=== PATIENT | male | born 1985 | race Caucasian/White ===

== ENCOUNTER 2016-08-02 19:20 | Emergency (ER) | payer MEDICAID ==
[2016-08-02 19:25] VITALS: BP 111/48; PULSE 88; RESP 16; TEMP 97.7; O2SAT 95
[2016-08-02] MEDS ORDERED: TDAP ADULT 0.5 ML INJ (BOOSTRIX) IM ONE (19:33)
--- NOTE | 2016-08-02 19:53 | EDPHY ---
H & P Time Seen by Provider: 08/02/16 19:45 HPI/ROS: This is a 31-year-old male presenting to emergency department complaining of laceration. to left cheek patient states he was snowboarding today around 1500 , his friend was in front of him and fell patient, causing pt to fall hitting left cheek on corner of snowboard. No LOC, Patient stated he continued snowboard for the rest of the afternoon. Denies any other complaints. Needs tetanus REVIEW OF SYSTEMS: Constitutional: Eyes: ENT: Respiratory: Cardiac: Gastrointestinal: Genitourinary: Musculoskeletal: Skin: Neurological: Psych: Smoking Status: Former smoker Physical Exam: CONSTITUTIONAL: patient appeared well nourished, non-ill appearing and normally developed. No acute distress. Vital signs as documented. HEENT: Normocephalic PERRLA. EOMI. NECK: Supple, without jugular venous distension, tracheal deviation. FROM without pain RESP: Non-labored resp effort NEURO: AAOx3 CNII-XII intact EXTREMITIES: FROM without pain or difficulty SKIN: Warm and dry. 3 cm laceration noted to corner of the left eye and left cheek. Bleeding controlled PSYCH: Normal affect, calm, no distress, acting appropriate Constitutional: Initial Vital Signs Temperature (C) 36.5 C 08/02/16 19:24 Heart Rate 88 08/02/16 19:24 Respiratory Rate 16 08/02/16 19:24 Blood Pressure 111/48 L 08/02/16 19:24 O2 Sat (%) 95 08/02/16 19:24 O2 Delivery Mode Room Air Allergies/Adverse Reactions: No Known Allergies Allergy (Verified 08/02/16 19:26) Home Medications: Medication Instructions Recorded NK [No Known Home Meds] 08/02/16 Medical Decision Making Procedures: Procedure: Laceration repair. Verbal consent was obtained from the patient. 3 cm laceration on the left upper aspect of cheek. 3ml 0.5% bupivacaine with epinephrine local infiltrate. The wound was irrigated. There were no deep structures involved. The wound was repaired using 5-0 Ethilon #5 sutures with Steri-Strips placed. The procedure was performed by myself. A dressing was applied by our EMT. Patient tolerated procedure ED Course/Re-evaluation: Discussed plan of care: 0.5% bupivacaine with epi 3ml local infiltrate, wound irrigation, and plan for sutures. Patient agreed with plan Differential Diagnosis: Differential diagnosis considered but limited to zygoma fracture, foreign body and and hematoma - Data Points Medications Given: Discontinued Medications Diphtheria/Tetanus/Acell Pertussis (Boostrix) 0.5 ml IM .ONCE ONE Stop: 08/02/16 19:34 Last Admin: 08/02/16 19:38 Dose: 0.5 ml Departure - Departure Disposition: Home, Routine, Self-Care Clinical Impression: Laceration Instructions: Care For Your Stitches (ED), Laceration (ED) Additional Instructions: 1. Leave Steri-Strips on the laceration itself, sutures were placed 2. Have sutures removed in 5 days you can return here or go to your primary care doctor's office 3. Ice pack to area 15 minutes every hour for the next 6-12 hours to help decrease in swelling 4. Ibuprofen 600 mg every 6-8 hours as needed, and/or Tylenol 500 mg to 1000 mg every 6 hours 5. Monitor for any signs of infection such as: Redness, red streaking, any pus or fever if this should occur return to the emergency department Referrals: EDDA MCDANIEL [Other] - As per Instructions
== END 2016-08-02 20:23 | disposition home or self-care (01) ==
PROC: 0HQ1XZZ Repair Face Skin, External Approach (ICD-10-PCS; principal; 2016-08-02)
DX: S01.412A Laceration without foreign body of left cheek and temporomandibular area, initial encounter (principal); Z23 Encounter for immunization; Z87.891 Personal history of nicotine dependence; V00.311A Fall from snowboard, initial encounter; Y93.23 Activity, snow (alpine) (downhill) skiing, snowboarding, sledding, tobogganing and snow tubing

== ENCOUNTER 2017-05-15 22:06 | Emergency (ER) | payer MEDICAID ==
[2017-05-15] MEDS ORDERED: LORazepam 2 MG/ML INJ ONE (22:14)
--- NOTE | 2017-05-15 22:19 | EDPHY ---
H & P Time Seen by Provider: 05/15/17 22:10 HPI/ROS: Chief Complaint: Agitation HPI: 31-year-old male who per remain with taking LSD and marijuana earlier tonight. Patient became extremely paranoid and agitated. EMS was called. On arrival the patient was tachycardic. He is quite agitated, requiring 4 point restraints. He is awake alert. He is answering questions. Denies any trauma. No evidence of trauma per EMS. No evidence of other ingestions. Patient has remained does confirm his ingestions. Patient is concerned that his girlfriend might be having a heart attack. ROS: 10 point Review of Systems is negative except as noted in the HPI. PMH: Denies Social History: No smoking, occasional alcohol, marijuana and LSD Family History: non-contributory Physical Exam: Gen: Awake, Alert, responding to internal stimuli, agitated HEENT: Nose: no rhinorrhea Eyes: PERRLA, EOMI Mouth: Moist mucosa Neck: Supple, no JVD Chest: nontender, lungs clear to auscultation Heart: S1, S2 normal, no murmur, tachycardic Abd: Soft, non-tender, no guarding Back: no CVA tenderness, no midline tenderness Ext: no edema, non-tender Skin: no rash Neuro: CN II-XII intact, Sensation grossly intact, Strength 5/5 in bilateral upper and lower extremities - Medical/Surgical History Hx Asthma: No Hx Chronic Respiratory Disease: No Hx Diabetes: No Hx Cardiac Disease: No Hx Renal Disease: No Hx Cirrhosis: No Hx Alcoholism: No Hx HIV/AIDS: No Hx Splenectomy or Spleen Trauma: No Other PMH: Appy, left knee surgery, wisdom teeth extracted - Social History Smoking Status: Former smoker Constitutional: Initial Vital Signs Temperature (C) 36.5 C 05/15/17 22:20 Heart Rate 128 H 05/15/17 22:20 Respiratory Rate 22 H 05/15/17 22:20 Blood Pressure 128/92 H 05/15/17 22:20 O2 Sat (%) 96 05/15/17 22:20 O2 Delivery Mode Room Air Allergies/Adverse Reactions: No Known Allergies Allergy (Verified 08/02/16 19:26) Home Medications: Medication Instructions Recorded NK [No Known Home Meds] 08/02/16 Medical Decision Making ED Course/Re-evaluation: Patient is now awake and appropriate. Ambulating unassisted to the bathroom. No current complaints. Medically cleared for discharge - Data Points Medications Given: Discontinued Medications Haloperidol Lactate (Haldol Injection) 5 mg IVP EDNOW ONE Stop: 05/15/17 23:11 Last Admin: 05/15/17 23:13 Dose: 5 mg Sodium Chloride (Ns) 1,000 mls @ 0 mls/hr IV ONCE ONE; Wide Open PRN Reason: Protocol Stop: 05/15/17 22:25 Last Admin: 05/15/17 22:25 Dose: 1,000 mls Lorazepam (Ativan Injection) 2 mg IVP EDNOW ONE Stop: 05/15/17 22:24 Last Admin: 05/15/17 22:25 Dose: 2 mg Departure - Departure Disposition: Home, Routine, Self-Care Clinical Impression: Polysubstance abuse Condition: Good Instructions: Polysubstance Abuse (ED) Referrals: Patient,NotPresent [Unknown] - As per Instructions
[2017-05-15 22:23] VITALS: TEMP 97.7
[2017-05-15] MEDS ORDERED: LORazepam 2 MG/ML INJ IVP ONE (22:23)
[2017-05-15] MEDS ORDERED: NS 1,000 ML IV ONE (22:24)
[2017-05-15] MEDS ORDERED: HALOPERIDOL LACT 5 MG/ML INJ ONE (23:09)
[2017-05-15] MEDS ORDERED: HALOPERIDOL LACT 5 MG/ML INJ IVP ONE (23:10)
[2017-05-16 06:06] VITALS: BP 122/79; PULSE 69; RESP 16; O2SAT 95
== END 2017-05-16 06:13 | disposition home or self-care (01) ==
LOC: EDUNIT#
DX: F16.10 Hallucinogen abuse, uncomplicated (principal); E86.9 Volume depletion, unspecified; Z87.891 Personal history of nicotine dependence
CPT/HCPCS: 96374; J1630; J2060

== ENCOUNTER 2017-08-02 11:59 | Emergency (ER) | payer OTHER, MEDICAID ==
--- NOTE | 2017-08-02 14:09 | EDPHY ---
H & P Smoking Status: Former smoker Time Seen by Provider: 08/02/17 13:54 HPI/ROS: CHIEF COMPLAINT: Right thumb injury HISTORY OF PRESENT ILLNESS: 32-year-old male presents to the emergency department with injury to his right thumb. The patient was at work and caught his right thumb in a ski binding. His co-worker had to come over and released the binding so he was able to remove his right thumb. He is right-hand dominant. The incident happened just prior to arrival. He complains of isolated pain to the right thumb. He believes his tetanus shot is current. ROS: Denies numbness or tingling in his fingers, injury to the other fingers. Denies retained foreign body. (ЕленаSwapna wray) Past Medical/Surgical History: Appendectomy, orthopedic surgery, wisdom teeth extraction (Swapna Esteban) Social History: Works at [employer] (Swapna Esteban) Physical Exam: On examination the patient has puncture wound noted to the right thumb. It is swollen and tender to palpate. No puncture wound or laceration extending into the PIP joint. The other fingers do not appear injured. Normal sensation to light touch with normal 2 point discrimination. Strong radial pulse at the right wrist. (ЕленаSwapna wray) Constitutional: Initial Vital Signs Temperature (C) 36.7 C 08/02/17 12:12 Heart Rate 54 L 08/02/17 12:12 Respiratory Rate 18 08/02/17 12:12 Blood Pressure 131/90 H 08/02/17 12:12 O2 Sat (%) 100 08/02/17 12:12 O2 Delivery Mode Room Air Allergies/Adverse Reactions: No Known Allergies Allergy (Verified 08/02/16 19:26) Home Medications: Medication Instructions Recorded Cephalexin [Keflex] 500 mg PO QID #28 cap 08/02/17 oxyCODONE/APAP 5/325 [Percocet 1 - 2 tab PO Q4-6PRN PRN #11 tab 08/02/17 5/325] MDM/Departure - [facility] Imaging: I viewed and interpreted images myself - [facility] Procedures: After consent was obtained, digital block was performed on the right thumb using 1% lidocaine without epinephrine 0.5% bupivacaine without epinephrine. After adequate anesthesia, the right subungual hematoma was drained with electrocautery. Patient had relief. Bacitracin dressing applied as well as Alumafoam splint. (Swapna Esteban) ED Course/Re-evaluation: 32-year-old male presents with right thumb injury. X-rays reveal distal phalanx fracture. The patient had open puncture wound. He will be started on Keflex. He was given orthopedic hand surgical referral and placed in a splint. (Swapna Esteban) I did not see this patient while he was in the emergency department. However his care was discussed with PA while the patient was in the department. I agree with treatment plan and management (Abad Batista) - Depart Disposition: Home, Routine, Self-Care Clinical Impression: Fracture of thumb, right open, Subungual hematoma of finger Condition: Good Instructions: Subungual Hematoma (ED), Finger Fracture (ED) Additional Instructions: Keflex 500 mg 4 times daily for 1 week to prevent infection. Keep splint on and keep it dry. Follow up with orthopedic hand surgeon tomorrow or Thursday to recheck. Ibuprofen 600 mg every 8 hr as needed for pain. Percocet for severe pain as directed. Prescriptions: Cephalexin [Keflex] 500 mg PO QID #28 cap oxyCODONE/APAP 5/325 [Percocet 5/325] 1 - 2 tab PO Q4-6PRN PRN #11 tab PRN Reason: For Moderate To Severe Pain Referrals: Megan Pryor MD [Medical Doctor] - As per Instructions (Orthopedic hand surgeon on-call)
[2017-08-02 15:19] VITALS: BP 135/92
== END 2017-08-02 15:19 | disposition home or self-care (01) ==
PROC: 0H9QXZZ Drainage of Finger Nail, External Approach (ICD-10-PCS; principal; 2017-08-02)
DX: S62.521B Displaced fracture of distal phalanx of right thumb, initial encounter for open fracture (principal); S60.111A Contusion of right thumb with damage to nail, initial encounter; Z87.891 Personal history of nicotine dependence; W23.1XXA Caught, crushed, jammed, or pinched between stationary objects, initial encounter; Y99.8 Other external cause status; Y93.89 Activity, other specified
CPT/HCPCS: L3925